=== PATIENT | male | born 1945 | race Caucasian/White ===

== ENCOUNTER 2023-04-02 12:36 | Emergency (ER) | payer MEDICARE, OTHER, SELFPAY ==
[2023-04-02] VITALS (31 sets, daily range): BP systolic 114–165; BP diastolic 62–81; PULSE 89–117; RESP 20; TEMP 37.7; O2SAT 93–99
--- NOTE | 2023-04-02 14:51 | ED_ITS ---
HPI - Abdominal Pain General Time Seen by Provider: 14:51 <Marilee Sawyer - Last Filed: 04/02/23 18:17> Date Seen: 04/02/23 <Marilee Vasquez Filed: 04/02/23 18:17> Chief Complaint: Abdominal Pain <Marilee Sawyer - Last Filed: 04/02/23 18:17> Stated Complaint: Abdominal pain, fever <Marilee Sawyer - Last Filed: 04/02/23 18:17> Time Seen by Provider: 04/02/23 14:50 <Marilee Sawyer - Last Filed: 04/02/23 18:17> Source: patient <Marilee Vasquez Filed: 04/02/23 18:17> Mode of arrival: ambulatory <Marilee Vasquez Filed: 04/02/23 18:17> Limitations: no limitations <Marilee Vasquez Filed: 04/02/23 18:17> History of Present Illness HPI narrative: Patient presents with sudden chills beginning this morning at 9:00 with associated low-grade (100 F) fevers, and headaches. Patient is now complaining of diffuse mid abdominal discomfort and states the patient's abdomen looks more bloated than normal. He denies any radiation into his testicles. Patient tried taking Tylenol at 10:30 a.m. with little to no relief. Patient's last bowel movement was this morning and he notes it was harder than normal. 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 states patient looked flushed and she was worried so she brought him in. They did an at-home COVID test which was negative. Patient denies any nausea, vomiting, back pain, urinary changes, chest pain, shortness of breath, cough, or any other complaints at this time. Of note, patient is allergic to NSAIDs. History of prostate cancer, hydroceles, and hypertension. No known ill contacts. No recent travel. <Marilee Vasquez Filed: 04/02/23 18:17> Related Data Home Medications: Home Medications Medication Instructions Recorded Confirmed atorvastatin 10 mg tablet 10 mg PO DAILY 04/02/23 04/02/23 calcium phosphate,dibasic 77 tab PO 04/02/23 mg-vitamin D3 400 unit tablet cetirizine 10 mg tablet (24Hour 5 mg PO DAILY PRN 04/02/23 04/02/23 Allergy) chlorthalidone 25 mg tablet 25 mg PO DAILY 04/02/23 04/02/23 finasteride 5 mg tablet 5 mg PO DAILY 04/02/23 04/02/23 metoprolol succinate 50 mg 50 mg PO DAILY 04/02/23 04/02/23 tablet,extended release 24 hr tamsulosin 0.4 mg capsule (Flomax) 0.4 mg PO DAILY 04/02/23 04/02/23 Previous Rx's Medication Instructions Recorded amoxicillin 875 mg-potassium 1 tab PO BID #20 tabs 04/02/23 clavulanate 125 mg tablet <[facility] Last Filed: 04/02/23 18:17> Allergies/Adverse Reactions: Allergies Allergy/AdvReac Type Severity Reaction Status Date / Time lisinopril Allergy Severe angioedema Verified 04/02/23 13:01 adhesive Allergy Mild Verified 04/02/23 13:01 aspirin Allergy Mild Hives Verified 04/02/23 13:01 dutasteride [From Avodart] Allergy Mild Hives Verified 04/02/23 13:01 NSAIDS (Non-Steroidal Allergy Mild Hives Verified 04/02/23 13:01 Anti-Inflamma <[facility] Last Filed: 04/02/23 18:17> Review of Systems Status of ROS Reports: 10 or more systems reviewed and unremarkable except as noted in History and below <[facility] Last Filed: 04/02/23 18:17> Const Reports: chills and fatigue; Denies: fever or change in weight <[facility] - Last Filed: 04/02/23 18:17> Eyes Denies: change in vision or blurry vision <[facility] Last Filed: 04/02/23 18:17> ENMT Denies: throat pain, neck pain, throat swelling or difficulty swallowing <[facility] Last Filed: 04/02/23 18:17> Cardio Denies: chest pain, palpitations, edema, swelling of feet/ankles, lightheadedness or shortness of breath with exertion <[facility] Last Filed: 04/02/23 18:17> Resp Denies: shortness of breath, cough or wheezing <[employer] Last Filed: 04/02/23 18:17> GI Reports: abdominal pain, nausea, constipation and bloating; Denies: vomiting, heartburn, diarrhea, difficulty swallowing, blood in stool or mucus in stool <[employer] Last Filed: 04/02/23 18:17> Reports: scrotal swelling (at baseline); Denies: painful urination, urinary frequency, urinary urgency, blood in urine, testicular pain, difficulty urinating, decreased urine ouput or urinary hesitancy <[employer] Last Filed: 04/02/23 18:17> Musculo Denies: back pain, neck pain, extremity pain, extremity swelling or muscle weakness <[employer] Last Filed: 04/02/23 18:17> Integ/Breast Denies: rash or itching <[employer] Filed: 04/02/23 18:17> Neuro Reports: headache <[employer] Filed: 04/02/23 18:17> Endo Reports: fatigue <[employer] Filed: 04/02/23 18:17> Allergy/Immuno Denies: throat swelling or wheezing <[employer] Last Filed: 04/02/23 18:17> PFSH PFSH Social History: Social History Non-prescribed substance use: denies use <[employer] Filed: 04/02/23 18:17> Exam Narrative: Exam Narrative: General: Healthy appearing, well nourished, alert and oriented x3. No apparent distress. Above average body habitus. HENMT: Normocephalic, atraumatic. Moist oral mucous membranes. Oropharynx normal. External ears normal. Hearing grossly normal bilaterally. Face symmetric bilaterally. Eye: PERRL. EOMs intact bilaterally. Conjunctivae normal. Neck: No lymphadenopathy. Supple. Thyroid normal. No carotid bruits. Heart: Inspection normal. No tenderness to palpation. Regular rate and rhythm, S1 and S2, with no gallops, clicks, or murmurs. Peripheral pulses 2+ throughout. Lung: Normal respiratory effort. Clear to auscultation bilaterally. Percussion normal. Abdomen: Normal to inspection. Normoactive bowel sounds. Firm muscle tone, nondistended, nontender. No guarding or rebound tenderness. No hepatosplenome ritchie. No CVA tenderness. Extremities: Full ROM. No pedal edema. No calf tenderness. Normal capillary refill. Psych: Cooperative. Thought process normal. <Marilee Sawyer - Last Filed: 04/02/23 18:17> Const: Vital Signs, click to edit/add: Vital Signs - 24 hr 04/02/23 12:55 04/02/23 15:41 04/02/23 15:42 Temperature 99.9 F H Pulse Rate 108 H 109 H Pulse Rate [Right Pulse Oximeter] 117 H Respiratory Rate 20 Blood Pressure 149/81 H 120/75 Blood Pressure [Ri ght Upper Arm] 165/76 H Pulse Oximetry 93 95 95 Oxygen Delivery Me thod Room Air 04/02/23 15:43 04/02/23 15:45 04/02/23 16:00 Temperature Pulse Rate 113 H 110 H 104 H Pulse Rate [Right Pulse Oximeter] Respiratory Rate Blood Pressure Blood Pressure [Ri ght Upper Arm] Pulse Oximetry 94 94 93 Oxygen Delivery Me thod 04/02/23 16:01 04/02/23 16:15 04/02/23 16:30 Temperature Pulse Rate 106 H 103 H 105 H Pulse Rate [Right Pulse Oximeter] Respiratory Rate Blood Pressure 114/70 Blood Pressure [Ri ght Upper Arm] Pulse Oximetry 94 94 96 Oxygen Delivery Me thod 04/02/23 16:32 04/02/23 16:45 04/02/23 17:00 Temperature Pulse Rate 102 H 96 98 Pulse Rate [Right Pulse Oximeter] Respiratory Rate Blood Pressure 151/76 H Blood Pressure [Ri ght Upper Arm] Pulse Oximetry 98 98 96 Oxygen Delivery Me thod 04/02/23 17:01 04/02/23 17:15 04/02/23 17:30 Temperature Pulse Rate 100 99 109 H Pulse Rate [Right Pulse Oximeter] Respiratory Rate Blood Pressure 138/70 Blood Pressure [Ri ght Upper Arm] Pulse Oximetry 96 96 95 Oxygen Delivery Me thod 04/02/23 17:31 04/02/23 17:45 04/02/23 18:00 Temperature Pulse Rate 97 97 95 Pulse Rate [Right Pulse Oximeter] Respiratory Rate Blood Pressure 131/78 Blood Pressure [Ri ght Upper Arm] Pulse Oximetry 95 97 97 Oxygen Delivery Me thod 04/02/23 18:02 04/02/23 18:15 04/02/23 18:31 Temperature Pulse Rate 97 97 93 Pulse Rate [Right Pulse Oximeter] Respiratory Rate Blood Pressure 155/79 H 151/62 H Blood Pressure [Ri ght Upper Arm] Pulse Oximetry 99 97 96 Oxygen Delivery Me thod 04/02/23 18:32 Temperature Pulse Rate 92 Pulse Rate [Right Pulse Oximeter] Respiratory Rate Blood Pressure Blood Pressure [Ri ght Upper Arm] Pulse Oximetry 96 Oxygen Delivery Me thod <Marilee Gall - Last Filed: 04/02/23 18:17> Vital Signs, click to edit/add: Vital Signs - 24 hr 04/02/23 12:55 04/02/23 15:41 04/02/23 15:42 Temperature 99.9 F H Pulse Rate 108 H 109 H Pulse Rate [Right Pulse Oximeter] 117 H Respiratory Rate 20 Blood Pressure 149/81 H 120/75 Blood Pressure [Ri ght Upper Arm] 165/76 H Pulse Oximetry 93 95 95 Oxygen Delivery Me thod Room Air 04/02/23 15:43 04/02/23 15:45 04/02/23 16:00 Temperature Pulse Rate 113 H 110 H 104 H Pulse Rate [Right Pulse Oximeter] Respiratory Rate Blood Pressure Blood Pressure [Ri ght Upper Arm] Pulse Oximetry 94 94 93 Oxygen Delivery Me thod 04/02/23 16:01 04/02/23 16:15 04/02/23 16:30 Temperature Pulse Rate 106 H 103 H 105 H Pulse Rate [Right Pulse Oximeter] Respiratory Rate Blood Pressure 114/70 Blood Pressure [Ri ght Upper Arm] Pulse Oximetry 94 94 96 Oxygen Delivery Me thod 04/02/23 16:32 04/02/23 16:45 04/02/23 17:00 Temperature Pulse Rate 102 H 96 98 Pulse Rate [Right Pulse Oximeter] Respiratory Rate Blood Pressure 151/76 H Blood Pressure [Ri ght Upper Arm] Pulse Oximetry 98 98 96 Oxygen Delivery Me thod 04/02/23 17:01 04/02/23 17:15 04/02/23 17:30 Temperature Pulse Rate 100 99 109 H Pulse Rate [Right Pulse Oximeter] Respiratory Rate Blood Pressure 138/70 Blood Pressure [Ri ght Upper Arm] Pulse Oximetry 96 96 95 Oxygen Delivery Me thod 04/02/23 17:31 04/02/23 17:45 04/02/23 18:00 Temperature Pulse Rate 97 97 95 Pulse Rate [Right Pulse Oximeter] Respiratory Rate Blood Pressure 131/78 Blood Pressure [Ri ght Upper Arm] Pulse Oximetry 95 97 97 Oxygen Delivery Me thod 04/02/23 18:02 04/02/23 18:15 04/02/23 18:31 Temperature Pulse Rate 97 97 93 Pulse Rate [Right Pulse Oximeter] Respiratory Rate Blood Pressure 155/79 H 151/62 H Blood Pressure [Ri ght Upper Arm] Pulse Oximetry 99 97 96 Oxygen Delivery Me thod 04/02/23 18:32 Temperature Pulse Rate 92 Pulse Rate [Right Pulse Oximeter] Respiratory Rate Blood Pressure Blood Pressure [Ri ght Upper Arm] Pulse Oximetry 96 Oxygen Delivery Me thod <Azul Bonner MD - Last Filed: 04/02/23 20:08> Course Course ED Course: I have personally seen and examined this patient, reviewed the note, placed orders and reviewed results. By my review the CT scan of the abdomen with contrast shows diverticulitis, liver cysts, gallstones without significant wall thickening. Final radiology read is as follows:FINDINGS: Lower chest: Scattered atelectasis. Liver: Scattered hepatic cysts. Normal in size and attenuation. No suspicious masses. Gallbladder and bile ducts: Cholelithiasis. Pancreas: Unremarkable. No mass or inflammation. Spleen: Unremarkable. Normal in size. No masses. Adrenal glands: Unremarkable. No nodules. Kidneys: Unremarkable. No suspicious masses, stones, or hydronephrosis. GI tract: Focal sigmoid diverticulitis. Additional severe colonic diverticulosis. No bowel obstruction. Normal appendix. Vasculature: Abdominal aorta is normal in caliber. Mesenteric arteries are patent. Lymph nodes: No lymphadenopathy. Peritoneum/Abdominal Wall: Tiny fat containing umbilical hernia. Small right fat containing inguinal hernia. No sign of mass or infiltration. No free air or significant free fluid. Pelvis: Prostatic post treatment changes. Mildly distended bladder.. Bones: Unremarkable for age. IMPRESSION: Acute uncomplicated sigmoid colonic diverticulitis. No drainable fluid collections. Additional chronic findings as above. Have discussed findings with patient and his . Recommend antibiotic treatment, return to the ER for worsening such as high fevers, shaking chills, vomiting, bloody stools or severe pain. Primary care follow-up if not improving over the next few days with treatment. <Azul Bonner MD - Last Filed: 04/02/23 20:08> Reevaluation(s) Time of Reevaluation #1: 15:25 <Marilee Sawyer - Last Filed: 04/02/23 18:17> Vital Signs Vital signs: Initial Vital Signs Temperature 99.9 F H 04/02/23 12:55 Temperature Source Oral 04/02/23 12:55 Pulse Rate 117 H 04/02/23 12:55 Pulse Rhythm Regular 04/02/23 12:55 Pulse Strength 3+ Normal 04/02/23 12:55 Respiratory Rate 20 04/02/23 12:55 Blood Pressure 165/76 H 04/02/23 12:55 Blood Pressure Mean 105 04/02/23 12:55 Blood Pressure Position Sitting 04/02/23 12:55 Pulse Oximetry 93 04/02/23 12:55 Oxygen Delivery Method Room Air 04/02/23 12:55 Vital Signs Temperature 99.9 F H 04/02/23 12:55 Pulse Rate 117 H 04/02/23 12:55 Respiratory Rate 20 04/02/23 12:55 Blood Pressure 165/76 H 04/02/23 12:55 Pulse Oximetry 93 04/02/23 12:55 Oxygen Delivery Method Room Air 04/02/23 12:55 Temperature 99.9 F H 04/02/23 12:55 Pulse Rate 92 04/02/23 18:32 Respiratory Rate 20 04/02/23 12:55 Blood Pressure 151/62 H 04/02/23 18:31 Pulse Oximetry 96 04/02/23 18:32 Oxygen Delivery Method Room Air 04/02/23 12:55 <Marilee Sawyer - Last Filed: 04/02/23 18:17> Initial Vital Signs Temperature 99.9 F H 04/02/23 12:55 Temperature Source Oral 04/02/23 12:55 Pulse Rate 117 H 04/02/23 12:55 Pulse Rhythm Regular 04/02/23 12:55 Pulse Strength 3+ Normal 04/02/23 12:55 Respiratory Rate 20 04/02/23 12:55 Blood Pressure 165/76 H 04/02/23 12:55 Blood Pressure Mean 105 04/02/23 12:55 Blood Pressure Position Sitting 04/02/23 12:55 Pulse Oximetry 93 04/02/23 12:55 Oxygen Delivery Method Room Air 04/02/23 12:55 Vital Signs Temperature 99.9 F H 04/02/23 12:55 Pulse Rate 117 H 04/02/23 12:55 Respiratory Rate 20 04/02/23 12:55 Blood Pressure 165/76 H 04/02/23 12:55 Pulse Oximetry 93 04/02/23 12:55 Oxygen Delivery Method Room Air 04/02/23 12:55 Temperature 99.9 F H 04/02/23 12:55 Pulse Rate 92 04/02/23 18:32 Respiratory Rate 20 04/02/23 12:55 Blood Pressure 151/62 H 04/02/23 18:31 Pulse Oximetry 96 04/02/23 18:32 Oxygen Delivery Method Room Air 04/02/23 12:55 <Azul Bonner MD - Last Filed: 04/02/23 20:08> Medications Administered Medications: Discontinued Medications Generic Name Dose Route Start Last Admin Trade Name Freq PRN Reason Stop Dose Admin Acetaminophen 1,000 mg 04/02/23 16:19 04/02/23 16:24 Acetaminophen 500 Mg Tablet PO 04/02/23 16:20 1,000 mg ONCE ONE Administration Sodium Chloride 1,000 mls @ 1,000 mls/hr 04/02/23 16:30 04/02/23 19:29 0.9 % Sodium Chloride 1000 Ml IV 04/02/23 17:29 Infused .Q1H TA Infusion <Marilee Sawyer - Last Filed: 04/02/23 18:17> Discontinued Medications Generic Name Dose Route Start Last Admin Trade Name Freq PRN Reason Stop Dose Admin Acetaminophen 1,000 mg 04/02/23 16:19 04/02/23 16:24 Acetaminophen 500 Mg Tablet PO 04/02/23 16:20 1,000 mg ONCE ONE Administration Sodium Chloride 1,000 mls @ 1,000 mls/hr 04/02/23 16:30 04/02/23 19:29 0.9 % Sodium Chloride 1000 Ml IV 04/02/23 17:29 Infused .Q1H TA Infusion <Azul Bonner MD - Last Filed: 04/02/23 20:08> MDM - Abdominal Pain MDM Narrative Medical decision making narrative: Patient is a pleasant 77-year-old male with a pertinent medical history of hypertension and prostate cancer presenting with sudden chills beginning this morning at 9:00 a.m. with associated low-grade fevers (100 F) and fatigue. Patient is now complaining of diffuse mid abdominal discomfort, but denies any nausea, vomiting, or urinary changes. Patient's last bowel movement was this morning and notes it was harder than normal. His is concerned the patient's abdomen looks more distended than normal and feels firm. At home COVID test was negative. On exam, patient is febrile, tachycardic, and hypertensive at 165/76. Lungs clear to auscultation bilaterally. I do not feel a chest x-ray is necessary at this time based on physical exam findings and history, will reassess once labs return. Abdomen with firm muscle tone, nondistended, and nontender. No guarding or rebound tenderness. No CVA tenderness. Physical exam is otherwise unremarkable. Workup will include Urine Microscopic, BMP, CBC, CRP, lipase, LFTs, and Covid/Flu/RSV. Will decide if imaging is appropriate after labs return. Differential diagnosis includes, but is not limited to, abdominal pain, constipation, diverticulosis, diverticulitis, gastroenteritis, pancreatitis, small-bowel obstruction, viral infection, c holecystitis, hepatitis, gastritis, GERD, PUD, UTI, pyelonephritis, testicular torsion. UA shows RBCs with sediment. CRP elevated at 4.3 and CBC remarkable for an elevated white count at 13.5, subsequent CT abdomen with contrast ordered. Will update the patient on our ED course and have IV placed. Viral swabs negative, we discussed how it may be too early to detect a viral infection as the symptoms began this morning. Patient given [address] mg acet[address] for pain. CT abdomen with contrast shows <Marilee Sawyer - Last Filed: 04/02/23 18:17> Patient is a pleasant 77-year-old male with a pertinent medical history of hypertension and prostate cancer presenting with sudden chills beginning this morning at 9:00 a.m. with associated low-grade fevers (100 F) and fatigue. Patient is now complaining of diffuse mid abdominal discomfort, but denies any nausea, vomiting, or urinary changes. Patient's last bowel movement was this morning and notes it was harder than normal. His is concerned the patient's abdomen looks more distended than normal and feels firm. At home COVID test was negative. On exam, patient is febrile, tachycardic, and hypertensive at 165/76. Lungs clear to auscultation bilaterally. I do not feel a chest x-ray is necessary at this time based on physical exam findings and history, will reassess once labs return. Abdomen with firm muscle tone, nondistended, and nontender. No guarding or rebound tenderness. No CVA tenderness. Physical exam is otherwise unremarkable. Workup will include Urine Microscopic, BMP, CBC, CRP, lipase, LFTs, and Covid/Flu/RSV. Will decide if imaging is appropriate after labs return. Differential diagnosis includes, but is not limited to, abdominal pain, constipation, diverticulosis, diverticulitis, gastroenteritis, pancreatitis, small-bowel obstruction, viral infection, cholecystitis, hepatitis, gastritis, GERD, PUD, UTI, pyelonephritis, testicular torsion. UA shows RBCs with sediment. CRP elevated at 4.3 and CBC remarkable for an elevated white count at 13.5, subsequent CT abdomen with contrast ordered. Will update the patient on our ED course and have IV placed. Viral swabs negative, we discussed how it may be too early to detect a viral infection as the symptoms began this morning. Patient given 1000 mg acetaminophen for pain. <Azul Bonner MD - Last Filed: 04/02/23 20:08> Differential Diagnosis Differential diagnosis: Likely abdominal pain, calculus of kidney, constipation, diverticulitis, gastroenteritis, pancreatitis and small bowel obstruction <Marilee Sawyer - Last Filed: 04/02/23 18:17> Medical Records Attestation: I reviewed the patient's medical records. <Marilee Sawyer - Last Filed: 04/02/23 18:17> Lab Data Attestation: I reviewed the patient's lab results. <Marilee Savage Last Filed: 04/02/23 18:17> Labs: Lab Results 04/02/23 04/02/23 04/02/23 Range/Units 14:51 15:23 15:48 WBC 13.55 H (4.50-11.00) K/uL RBC 5.31 (4.30-5.90) m/uL Hgb 16.8 (13.5-17.5) gm/dL Hct 48.9 (37.0-53.0) % MCV 92 (80-100) fL MCH 32 (26-34) pg MCHC 34 (32-36) gm/dL RDW Coeff of Lucho 11.8 (11.5-15.5) % Plt Count 185 (140-440) K/uL Neut % (Auto) 88.6 H (42.0-72.0) % Lymph % (Auto) 5.2 L (20-44) % [place] % (Auto) 5.8 (0.0-11.0) % Eos % (Auto) 0.1 (0.0-7.0) % Baso % (Auto) 0.1 (0.0-3.0) % Neut # (Auto) 12.00 H (1.7-7.0) K/uL Lymph # (Auto) 0.70 L (0.90-2.90) K/uL [place] # (Auto) 0.80 (0.00-0.90) K/UL Eos # (Auto) 0.00 (0.00-0.50) K/uL Baso # (Auto) 0.00 (0.00-0.30) K/uL Abs Immat Gran (auto) 0.00 (0.00-0.30) K/uL Imm/Tot Granulo (auto) 0.2 % Sodium 136 (135-149) mmol/L Potassium 3.8 (3.6-5.1) mmol/L Chloride 99 (96-114) mmol/L Carbon Dioxide 29 (20-32) mmol/L Anion Gap 8 (7-15) mEq/L BUN 17 (7-30) mg/dL Creatinine 0.9 (0.5-1.5) mg/dL Estimated GFR 89 ml/min Glucose 125 H (60-115) mg/dL Calcium 9.5 (8.4-10.6) mg/dL Total Bilirubin 1.2 (0.1-1.5) mg/dL Direct Bilirubin 0.0 (0.0-0.5) mg/dL AST 52 H (12-35) U/L ALT 62 H (4-50) U/L Alkaline Phosphatase 69 (40-150) U/L C-Reactive Protein Cancelled Total Protein (6.0-8.3) g/dL Albumin (3.3-5.0) g/dL Lipase (23-300) U/L Urine RBC 2-5 A (0-2) Urine WBC 2-5 (0-5) Ur Squamous Epith Cells None (None-Few) Amorphous Sediment Few A (None) Urine Bacteria None (None) SARS-CoV-2 (PCR) Negative SARS-CoV-2 (Negative) Influenza Type A (PCR) Negative PCR FLU A (Negative) Influenza Type B (PCR) Negative PCR FLU B (Negative) RSV (PCR) Negative PCR RSV (Negative) 04/02/23 Range/Units 15:48 WBC (4.50-11.00) K/uL RBC (4.30-5.90) m/uL Hgb (13.5-17.5) gm/dL Hct (37.0-53.0) % MCV (80-100) fL MCH (26-34) pg MCHC (32-36) gm/dL RDW Coeff of Lucho (11.5-15.5) % Plt Count (140-440) K/uL Neut % (Auto) (42.0-72.0) % Lymph % (Auto) (20-44) % [place] % (Auto) (0.0-11.0) % Eos % (Auto) (0.0-7.0) % Baso % (Auto) (0.0-3.0) % Neut # (Auto) (1.7-7.0) K/uL Lymph # (Auto) (0.90-2.90) K/uL [place] # (Auto) (0.00-0.90) K/UL Eos # (Auto) (0.00-0.50) K/uL Baso # (Auto) (0.00-0.30) K/uL Abs Immat Gran (auto) (0.00-0.30) K/uL Imm/Tot Granulo (auto) % Sodium (135-149) mmol/L Potassium (3.6-5.1) mmol/L Chloride (96-114) mmol/L Carbon Dioxide (20-32) mmol/L Anion Gap (7-15) mEq/L BUN (7-30) mg/dL Creatinine (0.5-1.5) mg/dL Estimated GFR ml/min Glucose (60-115) mg/dL Calcium (8.4-10.6) mg/dL Total Bilirubin (0.1-1.5) mg/dL Direct Bilirubin (0.0-0.5) mg/dL AST (12-35) U/L ALT (4-50) U/L Alkaline Phosphatase (40-150) U/L C-Reactive Protein 4.3 H Total Protein 7.4 (6.0-8.3) g/dL Albumin 4.6 (3.3-5.0) g/dL Lipase 67 (23-300) U/L Urine RBC (0-2) Urine WBC (0-5) Ur Squamous Epith Cells (None-Few) Amorphous Sediment (None) Urine Bacteria (None) SARS-CoV-2 (PCR) (Negative) Influenza Type A (PCR) (Negative) Influenza Type B (PCR) (Negative) RSV (PCR) (Negative) <Marilee Digna - Last Filed: 04/02/23 18:17> Lab Results 04/02/23 04/02/23 04/02/23 Range/Units 14:51 15:23 15:48 WBC 13.55 H (4.50-11.00) K/uL RBC 5.31 (4.30-5.90) m/uL Hgb 16.8 (13.5-17.5) gm/dL Hct 48.9 (37.0-53.0) % MCV 92 (80-100) fL MCH 32 (26-34) pg MCHC 34 (32-36) gm/dL RDW Coeff of Lucho 11.8 (11.5-15.5) % Plt Count 185 (140-440) K/uL Neut % (Auto) 88.6 H (42.0-72.0) % Lymph % (Auto) 5.2 L (20-44) % [place] % (Auto) 5.8 (0.0-11.0) % Eos % (Auto) 0.1 (0.0-7.0) % Baso % (Auto) 0.1 (0.0-3.0) % Neut # (Auto) 12.00 H (1.7-7.0) K/uL Lymph # (Auto) 0.70 L (0.90-2.90) K/uL [place] # (Auto) 0.80 (0.00-0.90) K/UL Eos # (Auto) 0.00 (0.00-0.50) K/uL Baso # (Auto) 0.00 (0.00-0.30) K/uL Abs Immat Gran (auto) 0.00 (0.00-0.30) K/uL Imm/Tot Granulo (auto) 0.2 % Sodium 136 (135-149) mmol/L Potassium 3.8 (3.6-5.1) mmol/L Chloride 99 (96-114) mmol/L Carbon Dioxide 29 (20-32) mmol/L Anion Gap 8 (7-15) mEq/L BUN 17 (7-30) mg/dL Creatinine 0.9 (0.5-1.5) mg/dL Estimated GFR 89 ml/min Glucose 125 H (60-115) mg/dL Calcium 9.5 (8.4-10.6) mg/dL Total Bilirubin 1.2 (0.1-1.5) mg/dL Direct Bilirubin 0.0 (0.0-0.5) mg/dL AST 52 H (12-35) U/L ALT 62 H (4-50) U/L Alkaline Phosphatase 69 (40-150) U/L C-Reactive Protein Cancelled Total Protein (6.0-8.3) g/dL Albumin (3.3-5.0) g/dL Lipase (23-300) U/L Urine RBC 2-5 A (0-2) Urine WBC 2-5 (0-5) Ur Squamous Epith Cells None (None-Few) Amorphous Sediment Few A (None) Urine Bacteria None (None) SARS-CoV-2 (PCR) Negative SARS-CoV-2 (Negative) Influenza Type A (PCR) Negative PCR FLU A (Negative) Influenza Type B (PCR) Negative PCR FLU B (Negative) RSV (PCR) Negative PCR RSV (Negative) 04/02/23 Range/Units 15:48 WBC (4.50-11.00) K/uL RBC (4.30-5.90) m/uL Hgb (13.5-17.5) gm/dL Hct (37.0-53.0) % MCV (80-100) fL MCH (26-34) pg MCHC (32-36) gm/dL RDW Coeff of Lucho (11.5-15.5) % Plt Count (140-440) K/uL Neut % (Auto) (42.0-72.0) % Lymph % (Auto) (20-44) % [place] % (Auto) (0.0-11.0) % Eos % (Auto) (0.0-7.0) % Baso % (Auto) (0.0-3.0) % Neut # (Auto) (1.7-7.0) K/uL Lymph # (Auto) (0.90-2.90) K/uL [place] # (Auto) (0.00-0.90) K/UL Eos # (Auto) (0.00-0.50) K/uL Baso # (Auto) (0.00-0.30) K/uL Abs Immat Gran (auto) (0.00-0.30) K/uL Imm/Tot Granulo (auto) % Sodium (135-149) mmol/L Potassium (3.6-5.1) mmol/L Chloride (96-114) mmol/L Carbon Dioxide (20-32) mmol/L Anion Gap (7-15) mEq/L BUN (7-30) mg/dL Creatinine (0.5-1.5) mg/dL Estimated GFR ml/min Glucose (60-115) mg/dL Calcium (8.4-10.6) mg/dL Total Bilirubin (0.1-1.5) mg/dL Direct Bilirubin (0.0-0.5) mg/dL AST (12-35) U/L ALT (4-50) U/L Alkaline Phosphatase (40-150) U/L C-Reactive Protein 4.3 H Total Protein 7.4 (6.0-8.3) g/dL Albumin 4.6 (3.3-5.0) g/dL Lipase 67 (23-300) U/L Urine RBC (0-2) Urine WBC (0-5) Ur Squamous Epith Cells (None-Few) Amorphous Sediment (None) Urine Bacteria (None) SARS-CoV-2 (PCR) (Negative) Influenza Type A (PCR) (Negative) Influenza Type B (PCR) (Negative) RSV (PCR) (Negative) <Azul Bonner MD - Last Filed: 04/02/23 20:08> Discharge Plan Discharge Clinical Impression: Diverticulitis <Marilee Sawyer - Last Filed: 04/02/23 18:17> Patient Disposition: Home, Self-Care <Marilee Digna Savage Filed: 04/02/23 18:17> Condition: Stable <Marilee Digna Filed: 04/02/23 18:17> Instructions: Diverticulitis (ED) <Marilee Digna Filed: 04/02/23 18:17> Additional Instructions: Antibiotic as prescribed. Return for worsening pain, high fevers or shaking chills, vomiting, bloody stools or other worsening. Primary care follow-up if not improved in the next several days. <Marilee Digna Filed: 04/02/23 18:17> Prescriptions: New amoxicillin-pot clavulanate 875-125 mg tablet 1 tab PO BID Qty: 20 0RF No Action atorvastatin 10 mg tablet 10 mg PO DAILY metoprolol succinate 50 mg tablet extended release 24 hr 50 mg PO DAILY chlorthalidone 25 mg tablet 25 mg PO DAILY tamsulosin [Flomax] 0.4 mg capsule 0.4 mg PO DAILY finasteride 5 mg tablet 5 mg PO DAILY cetirizine [24Hour Allergy] 10 mg tablet 5 mg PO DAILY PRN calcium phos,dibas-vitamin D3 77-400 mg-unit tablet PO <Marilee Digna Filed: 04/02/23 18:17> Follow Up/Referrals: Kal Humphrey MD [Primary Care Provider] - <Mariele Digna Filed: 04/02/23 18:17> Stand Alone Forms: MyHealth Info Instructions <Marilee Digna Filed: 04/02/23 18:17>
[2023-04-02 15:52] LABS: Amorphous Sediment Urine Few
[2023-04-02 16:00] LABS: Basophils Percent Auto 0.1 % (0.0-3.0); Eosinophils Percent Auto 0.1 % (0.0-7.0); Hematocrit 48.9 % (37.0-53.0); Hemoglobin* 16.8 gm/dL (13.5-17.5); Immature Granulocytes Pct Auto 0.2 %; Lymphocytes Percent Auto 5.2 % (20-44); Mean Corpuscular HGB Conc 34 gm/dL (32-36); Mean Corpuscular Hemoglobin 32 pg (26-34); Mean Corpuscular Volume 92 fL (80-100); Monocytes Percent Auto 5.8 % (0.0-11.0); Neutrophils Percent Auto 88.6 % (42.0-72.0); Platelet Count* 185 K/uL (140-440); RDW Coefficient of Variation % 11.8 % (11.5-15.5); Red Blood Count 5.31 m/uL (4.30-5.90); White Blood Count* 13.55 K/uL (4.50-11.00)
[2023-04-02 16:03] LABS: Slide Review Reflex No
[2023-04-02 16:15] LABS: Albumin* 4.6 g/dL (3.3-5.0); Chloride* 99 mmol/L (96-114); Potassium* 3.8 mmol/L (3.6-5.1); Sodium* 136 mmol/L (135-149)
[2023-04-02 16:17] LABS: Creatinine* 0.9 mg/dL (0.5-1.5); Estimated Glomerular Filt Rate 89 ml/min
[2023-04-02 16:18] LABS: Alkaline Phosphatase* 69 U/L (40-150); Anion Gap 8 mEq/L (7-15); Aspartate Amino Transferase* 52 U/L (12-35); Bilirubin Total* 1.2 mg/dL (0.1-1.5); Blood Urea Nitrogen* 17 mg/dL (7-30); Carbon Dioxide* 29 mmol/L (20-32); Glucose* 125 mg/dL (60-115); Total Protein* 7.4 g/dL (6.0-8.3)
[2023-04-02 16:19] LABS: Alanine Aminotransferase* 62 U/L (4-50); Calcium* 9.5 mg/dL (8.4-10.6); Lipase* 67 U/L (23-300)
[2023-04-02 16:20] LABS: PCR FLU A Negative PCR FLU A (Negative); PCR FLU B Negative PCR FLU B (Negative); PCR RSV Negative PCR RSV (Negative)
[2023-04-02 16:21] LABS: C Reactive Protein* 4.3 mg/dL (0.5-1.0)
[2023-04-02 16:24] LABS: SARS PCR* Negative SARS-CoV-2 (Negative)
[2023-04-02] MEDS: ACETAMINOPHEN 500 MG TABLET 1000 MG PO (16:24)
--- NOTE | 2023-04-02 16:27 | CRLHL7_ITS ---
For Patients: As a result of the Century Cures Act, medical imaging exams and procedure reports are released immediately into your electronic medical record. You may view this report before your referring provider. If you have questions, please contact your health care provider. INDICATION: Fever, lower abdominal pain. TECHNIQUE: CT abdomen and pelvis acquired with 103 cc Isovue 370 IV contrast. COMPARISON: None. FINDINGS: Lower chest: Scattered atelectasis. Liver: Scattered hepatic cysts. Normal in size and attenuation. No suspicious masses. Gallbladder and bile ducts: Cholelithiasis. Pancreas: Unremarkable. No mass or inflammation. Spleen: Unremarkable. Normal in size. No masses. Adrenal glands: Unremarkable. No nodules. Kidneys: Unremarkable. No suspicious masses, stones, or hydronephrosis. GI tract: Focal sigmoid diverticulitis. Additional severe colonic diverticulosis. No bowel obstruction. Normal appendix. Vasculature: Abdominal aorta is normal in caliber. Mesenteric arteries are patent. Lymph nodes: No lymphadenopathy. Peritoneum/Abdominal Wall: Tiny fat containing umbilical hernia. Small right fat containing inguinal hernia. No sign of mass or infiltration. No free air or significant free fluid. Pelvis: Prostatic post treatment changes. Mildly distended bladder.. Bones: Unremarkable for age. IMPRESSION: Acute uncomplicated sigmoid colonic diverticulitis. No drainable fluid collections. Additional chronic findings as above. Please note that all CT scans at this facility use dose modulation, iterative reconstruction, and/or weight-based dosing when appropriate to reduce radiation dose to as low as reasonably achievable. Dictated by Pawel Alonso MD @ 04/02/2023 7:48:24 PM (Electronically Signed)
[2023-04-02] MEDS: 0.9 % SODIUM CHLORIDE 1000 ml 1,000 ML IV (18:23)
[2023-04-02] MEDS: AMOXICILLIN/CLAVULANATE 875 mg/125 mg TABLET PO (20:14)
== END 2023-04-02 20:20 | disposition home or self-care (01) ==
PROVIDERS: Emergency Provider Emergency Medicine; PCP Family Medicine
DX: K57.92 Diverticulitis of intestine, part unspecified, without perforation or abscess without bleeding (principal)
CPT/HCPCS: 36415; 74177; 80048; 80076; 81015; 83690; 85025; 86140; 87631; 96360; 99284; 99285; A9270; J7030; Q9967